=== PATIENT | male | born 1975 | race Caucasian/White ===

== ENCOUNTER → 2023-04-24 | Outpatient (CLI) | payer BC ==
--- NOTE | 2023-04-24 16:34 | P.SLEEP ---
History of Present Illness H&P Date: 04/24/23 This is a 47-year-old male patient who has been diagnosed having obstructive sleep apnea and the patient was referred to me for treatment options regarding his GEOVANNA. The patient works as a maintenance shop welder for a [employer] and he works at [employer] and lives in [facility]. The patient commutes 1 hour each direction and he gets quite tired and fatigued during those drives. Nevertheless, he has never fallen asleep while driving and he has not been involved in a motor vehicle accident because of feeling drowsy or sleepy. His stepson copy around 48 ounce coffee jug every day. He is currently doing morning shifts. The patient has loud snoring and he has been told to quit breathing by his . He goes to bed around 9 PM, gets up at 5 AM in the morning and on weekends he sleeps between 10 PM and 8 AM in the morning. He does not take any naps during the day however he can easily fall asleep his left unstimulated. His current Barnum score is at 11. He sleeps on his stomach. He feels not refreshed when he wakes up in the morning yet despite oral his symptoms of fatigue and sleepiness, he is functional at work and he has no issues with memory or concentration. He drinks alcohol socially around 3 drinks on a weekly basis. He is known to have hypertension his blood pressure is under better control. The patient has undergone a home sleep study through his primary care physician. This was completed on 12/30/2022. Based on the results of the sleep study, the patient had a sleep latency of 19 minutes. Overall sleep efficiency was 92%. The patient had nocturnal oxygen desaturation as the patient spent approximately 11% of the sleep time below pulse ox of 91% and 7% of the sleep time below pulse ox of 89%. As for respiratory analysis, the patient was found to have severe obstructive sleep apnea with an AHI of 40. His disease was worse during REM sleep with an AHI of 64.8 during REM sleep. No central apneas were noted. Review of Systems Constitutional: Reports daytime sleepiness, Reports fatigue, Reports weight gain Eyes: denies as per HPI, denies blurred vision, denies bulging eye, denies decreased vision, denies diplopia, denies discharge, denies dry eye, denies irritation, denies itching, denies pain, denies photophobia, denies loss of peripheral vision, denies loss of vision, denies tunnel vision/blind spots Ears: deny: decreased hearing, ear discharge, earache, tinnitus Ears, nose, mouth and throat: Reports as per HPI Breasts: absent: as per HPI, gynecomastia Cardiovascular: Reports as per HPI Respiratory: Reports sleep apnea, Reports snoring Gastrointestinal: Reports as per HPI Genitourinary: Reports as per HPI, Reports decreased libido Musculoskeletal: Reports as per HPI Musculoskeletal: absent: ankle pain, ankle stiffness, ankle swelling Integumentary: Reports as per HPI Neurological: Reports as per HPI Psychiatric: Reports as per HPI Endocrine: Reports fatigue Hematologic/Lymphatic: Reports as per HPI Allergic/Immunologic: Reports as per HPI Past Medical History Past Medical History: Hypertension, Sleep Apnea/CPAP/BIPAP History of Any Multi-Drug Resistant Organisms: None Reported Past Surgical History: No Surgical Hx Reported Past Anesthesia/Blood Transfusion Reactions: No Reported Reaction Past Psychological History: No Psychological Hx Reported Smoking Status: Former smoker Medications and Allergies Home Medications and Allergies Comment(s): Lisinopril hydrochlorothiazide 20/25 1 tab today, amlodipine 5 mg p.o. daily Physical Exam BP is 132/88 with a pulse of 79 and a respiration of 18 and a temperature of 98. Pulse ox is 95% on room air oxygen. Weight is 236 pounds and a body mass index is 34.1 with a height of 5 feet and 9 inches. The size of the neck is 18 inches. Barnum score is at 11. The patient appeared well nourished and normally developed. Vital signs as documented. Head exam is unremarkable. No scleral icterus or corneal arcus noted. Neck is without jugular venous distension, thyromegaly, or carotid bruits. The patient has a Mallampati class IV with significant crowding of the posterior pharynx. Carotid upstrokes are brisk bilaterally. Lungs are clear to auscultation and percussion. Cardiac exam reveals the PMI to be normally sized and situated. Rhythm is regular. First and second heart sounds normal. No murmurs, rubs or gallops. Abdominal exam reveals normal bowel sounds, no masses, no organomegaly and no aortic enlargement. Extremities are nonedematous and both femoral and pedal pulses are normal. Examination of the skin revealed no evidence of significant rashes, suspicious appearing nevi or other concerning lesions. Neurologically, the patient is awake and alert and the patient does not have any focal neurological deficit. Cranial nerves are essentially intact. Assessment and Plan Plan: Severe symptomatic obstructive sleep apnea with an AHI of 40, worse during REM sleep. This is based on the home sleep study that was done on 12/30/2022. Nocturnal oxygen desaturation secondary to obstructive sleep apnea. The minimum pulse ox was 72% and the patient spent approximately 7% of the sleep time below pulse ox of 89% Chronic hypersomnia, Barnum score of 11 Obesity with a BMI of 34.1 Loud snoring Hypertension with a adequately controlled blood pressure Plan I had a lengthy discussion with the patient. I went over the results of the sleep study and currently the patient has severe obstructive sleep apnea and the patient will obviously need treatment. The patient is quite symptomatic at this point. He has not fallen sleep while driving. He is considered to be at high risk of falling asleep based on the severity of his GEOVANNA. As such, he was asked not to drive especially when feeling drowsy or sleepy. Meanwhile, the patient will be advised to undergo a immediate CPAP titration and proceed with CPAP therapy regarding his obstructive sleep apnea. His CPAP titration will be done here in the sleep center and the patient was seen back in follow-up to assess clinical response and compliancy. Encourage weight loss. Maintain sleep hygiene measures and maintain a regular sleep schedule. Avoid any sleep restriction or insufficiency. Will continue to follow. Sleep Note - Sleep Note Sleep Note: Temperature: Pulse Rate: Respiratory Rate: Blood Pressure: SpO2: Height: Weight: BMI: Neck Circumference:
== END ==
LOC: 3 N SLEEP 14:41
PROVIDERS: ATTEND Internal Medicine Critical Care Medicine
DX: G47.33 Obstructive sleep apnea (adult) (pediatric) (principal); G47.36 Sleep related hypoventilation in conditions classified elsewhere; G47.10 Hypersomnia, unspecified; E66.9 Obesity, unspecified; I10 Essential (primary) hypertension; G47.52 REM sleep behavior disorder; Z68.34 Body mass index [BMI] 34.0-34.9, adult; Z87.891 Personal history of nicotine dependence
CPT/HCPCS: 99211

== ENCOUNTER 2023-05-22 19:47 | Outpatient (CLI) | payer BC ==
--- NOTE | 2023-05-29 13:37 | P.PCN ---
Date of Procedure: 05/22/23 Operative Findings: CPAP titration report Date of services 05/22/2023 Clinical history This is a 47-year-old male patient with severe symptomatic obstructive sleep apnea with an AHI of 40, worse during REM sleep. This is based on a home sleep study that was done on 12/30/2022. The patient also experienced nocturnal oxygen desaturation with a minimum pulse ox of 72%. He has chronic hypersomnia sleepiness with an [place] score of 11. He has hypertension. I had a lengthy discussion with the patient. I went over the results of the sleep study. The patient is symptomatic from his obstructive sleep apnea. Fall asleep while driving. CPAP therapy was recommended and the patient is asked to come in to the sleep center to undergo a CPAP titration Pertinent physical findings Height is 5 feet and 9 inches, weight is 236 pounds with a body mass index of 34.1 Technical description The patient was studied using a standard complex polysomnography protocol that included recording of the 2 EKG, Central, occipital and frontal EEG, right and left outer canthus EOG, submental EMG, right and left anterior tibialis EMG, respiratory airflow by thermocouple and or pressure/flow transducer, respiratory efforts by abdominal and thoracic PVDF belts, oxygen saturation by cable oximetry. Position by observation synchronized the PSG. Stepwise CPAP titration was not eliminate obstructive respiratory events. Compumedibeltran Larios. Sleep architecture The total recording duration was 456.5 minutes. The total sleep time was 381.0 minutes. Overall sleep efficiency was 83.5%. Latency to sleep onset was 17.5 minutes. Latency to REM sleep was 69 minutes. The sleep architecture was characterized by 7.1% stage I, 61.3% stage II, 0% stage III, 33.6% REM sleep. Total arousal index was 4.1. The wake after sleep onset time was 58 minutes CPAP titration summary The patient was started on CPAP therapy initially as a pressure 5 cm of water and pressure was gradually increased by # 1 cm to reach a maximum CPAP pressure of 14 cm distal to this. At that point, due to ongoing oxygen desaturation spec ially during REM sleep, the patient was switched to a BiPAP and a titration was continued. The highest BiPAP pressure achieved was 20 over 16 cm of water. During this time, the patient was able to be studied in today's body positions and a sleep stages. While on BiPAP therapy, the obstructive respiratory events were essentially terminated specially the BiPAP pressure of 19 over 15 cm of water. Also, oxygen desaturations were completed terminated during REM and non- REM sleep. This was successful titration. Arousal index also improved while being on BiPAP therapy Sleep continue with the summary The patient had a total of 26 arousals with an arousal index of 4.1. Respiratory arousal index was 0.8 Periodic movements summary The patient had a total of 130 periodic limb movement activity with an index of 20.5. There were only 3. Regular movement activity with arousals with an index of 0.5 Cardiac summary Average heart rate was 73 with a minimum heart rate of 75 and a maximum heart rate of 79 Assessment Severe symptomatic GEOVANNA with an AHI of 40, worse during REM sleep. The patient underwent a successful BiPAP titration. CPAP and BiPAP was utilized during the titration and the patient was found to be more effectively treated with the BiPAP. There was also limitation of the obstructive respiratory events and improvement in oxygen saturations. Chronic hypersomnia with an [place] score of 11 Obesity with a BMI of 34.1 Hypertension Plan Initiate BiPAP therapy and the patient is going to be offered a VPAP auto with an EPAP minimum of 12 and a maximum of 19 with a pressure support of 4. The patient is going to be offered a AirFit F20 fullface mask medium size. Patient is going to see me back in the office in 30 to 90 days to assess patient response and compliancy. Encourage weight loss. Optimize sleep hygiene measures. Maintain regular sleep schedule. Will follow.
== END 2023-05-23 05:00 | disposition home or self-care (01) ==
LOC: 3 N SLEEP 19:47
PROVIDERS: ATTEND Internal Medicine Critical Care Medicine
DX: G47.33 Obstructive sleep apnea (adult) (pediatric) (principal); G47.10 Hypersomnia, unspecified; E66.9 Obesity, unspecified; I10 Essential (primary) hypertension; Z68.34 Body mass index [BMI] 34.0-34.9, adult
CPT/HCPCS: 95811

== ENCOUNTER → 2023-11-14 | Outpatient (CLI) | payer BC ==
[2023-11-14 15:26] LABS: Basophils # (A) 0.03 X 10*3/uL (0.00-0.10); Basophils % (A) 0.6 %; Eosinophils # (A) 0.05 X 10*3/uL (0.04-0.35); Eosinophils % (A) 0.9 %; HGB 14.2 g/dL (13.0-17.0); Lymphocytes # (A) 1.59 X 10*3/uL (0.90-5.00); Lymphocytes % (A) 29.6 %; MCH 29.2 pg (27.0-32.0); MCV 88.3 FL (80.0-97.0); Mean Platelet Volume 9.1 FL (9.5-12.2); Monocytes # (A) 0.56 X 10*3/uL (0.20-1.00); Monocytes % (A) 10.4 %; NRBC Per 100 WBC 0 X 10*3/uL (0.00-0.01); Neutrophils # (A) 3.13 X 10*3/uL (1.80-7.70); Neutrophils % (A) 58.1 %; Platelet Count 265 X 10*3/uL (140-440); RBC 4.87 X 10*6/uL (4.40-5.60); WBC 5.38 X 10*3/uL (4.50-10.00)
[2023-11-14 15:57] LABS: Chol/HDL Ratio 2.75 Ratio; LDL Cholesterol,Calculated 110.8 mg/dL (0.0-131.0); VLDL Calculation 12.56 mg/dL (5.00-40.00)
[2023-11-14 15:58] LABS: ALT 22 U/L (10-49); AST 20 U/L (14-35); Albumin 4.6 g/dL (3.8-4.9); Albumin/Globulin Ratio 2.09 Ratio (1.60-3.17); Alkaline Phosphatase 51 U/L (41-126); BUN/Creat Ratio 14.73 Ratio (12.00-20.00); Blood Urea Nitrogen 16.2 mg/dL (9.0-27.0); Calcium 9.7 mg/dL (8.7-10.3); Carbon Dioxide 26.6 mmol/L (21.6-31.8); Chloride 103 mmol/L (96-109); Globulin 2.2 g/dL (1.6-3.3); Glucose 105 mg/dL (70-110); Potassium 4.4 mmol/L (3.5-5.5); Sodium 140 mmol/L (135-145); T4, Free (Free Thyroxine) 1.17 ng/dL (0.80-1.80); Total Bilirubin 0.3 mg/dL (0.3-1.2); Total Protein 6.8 g/dL (6.2-8.2)
[2023-11-14 16:05] LABS: Appearance,Urine Clear (Clear); Bilirubin,Urine Negative (Negative); Blood,Urine Negative (Negative); Color,Urine Yellow (Yellow); Ketones,Urine Negative (Negative); Nitrite,Urine Negative (Negative); Urobilinogen,Urine 0.2 E.U./DL
== END | disposition home or self-care (01) ==
LOC: LABWHC1 07:27
PROVIDERS: ATTEND Family Medicine
DX: I10 Essential (primary) hypertension (principal)
CPT/HCPCS: 36415; 80053; 80061; 81003; 84439; 84443; 85025